=== PATIENT | male | born 1955 | race Caucasian/White ===

== ENCOUNTER 2017-05-30 09:07 | Emergency (ER) | payer BC ==
[~2017-05-30] VITALS: Ht 180.3 cm; Wt 89.7 kg
[~2017-05-30 09:07] MED LIST: CO Q-10200 MG PO; FLUVOXAMINE MA100 MG PO; LOVASTATIN20 MG PO; MOBIC15 MG PO; TRICOR145 MG PO; VITAMIN D2000 UNIT PO
[2017-05-30 09:47] LABS: HEMATOCRIT 45.8 % (38.0-50.0); MCH 32.5 PG (29.0-34.0); MCHC 35.4 G/DL (30.0-36.0); MEAN PLAT.VOLUME 9.8 uM^3 (9.0-12.4); PLATELET COUNT 210 K/uL (156-360); RBC DIS.WIDTH-CV 11.6 % (11.8-14.6); RBC DIS.WIDTH-SD 39.1 % (39-53); RED BLOOD COUNT 4.98 M/uL (4.00-5.50); WHITE BLOOD COUNT 8.3 K/uL (4.1-10.2)
[2017-05-30 09:57] LABS: CHLORIDE 101 mEq/L (99-109); POTASSIUM 3.8 mEq/L (3.7-5.4); SODIUM 137 mEq/L (136-147)
[2017-05-30 09:58] LABS: GLUCOSE 150 mg/dL (70-99)
[2017-05-30 10:00] LABS: ANION GAP 12 MEQ/L (2-14)
[2017-05-30 10:02] LABS: GFR ESTIMATE (CALCULATED) > 59 mL/min/
[2017-05-30 10:16] LABS: UREA NITROGEN (BUN) 16 mg/dL (9-23)
[2017-05-30 10:18] LABS: LIPASE 18 U/L (1.0-51.0)
[2017-05-30 11:54] LABS: ADD MIUA? YES; BILIRUBIN NEGATIVE; BLOOD LARGE; COLOR YELLOW ((YELLOW)); GLUCOSE (STRIP) NEGATIVE; KETONES NEGATIVE; LEUKOCYTES TRACE; NITRITE NEGATIVE; PROTEIN (STRIP) 100; SPECIFIC GRAVITY 1.017 (1.000-1.030)
[2017-05-30 12:01] LABS: BACTERIA NONE SEEN /HPF; CALCIUM OXALATE CRYSTALS 3+ /HPF; EPITHELIAL CELLS RARE /HPF; MUCUS TRACE /LPF; RED BLOOD CELLS TNTC /HPF (0-5); UCUL ADDED? YES
[2017-05-30] MEDS ORDERED: PERCOCET 5/31 TABLET PO (12:20)
[2017-05-30 12:32] VITALS: BP 137/87
== END 2017-05-30 12:35 | disposition home or self-care (01) ==
LOC: EME 09:07
DX: N20.0 Calculus of kidney (principal); E78.5 Hyperlipidemia, unspecified; Z87.442 Personal history of urinary calculi; Z88.2 Allergy status to sulfonamides
CPT/HCPCS: 76770; 80048; 81003; 83690; 85027; 87086; 93005; 99281; 99284